=== PATIENT | male | born 1940 | race Caucasian/White ===

== ENCOUNTER 2021-09-25 20:13 | Emergency (ER) | payer OTHER, MEDICAID ==
[~2021-09-25] VITALS: Ht 167.6 cm; Wt 72.7 kg
[~2021-09-25 20:13] MED LIST: METF-445 PO
[2021-09-25] MEDS ORDERED: AMLO-519 PO (21:02)
[2021-09-25] MEDS ORDERED: ASPI81TA39 PO (21:03)
[2021-09-25] MEDS ORDERED: DSSL PO (21:15)
[2021-09-25] MEDS ORDERED: QUET25TA PO (21:15)
[2021-09-25] MEDS ORDERED: BRIM15DR8 OU (21:15)
[2021-09-25] MEDS ORDERED: [UNRECOGNIZED DRUG - CODE] TP (21:15)
[2021-09-25] MEDS ORDERED: DOXE10 PO (21:15)
[2021-09-25] MEDS ORDERED: MIRT-89 PO (21:15)
[2021-09-25] MEDS ORDERED: GOLY4L PO (21:15)
[2021-09-25] MEDS ORDERED: CYAN100022 SL (21:15)
[2021-09-25] MEDS ORDERED: MELA3TAB89 PO (21:15)
[2021-09-25] MEDS ORDERED: LEVO100 PO (21:15)
[2021-09-25] MEDS ORDERED: METF-1211 PO (21:15)
[2021-09-25] MEDS ORDERED: FERR-89 PO (21:15)
[2021-09-25] MEDS ORDERED: OMEP20 PO (21:15)
[2021-09-25] MEDS ORDERED: XALA2.5OS OU (21:15)
[2021-09-25] MEDS ORDERED: DULA0.75 SQ (21:15)
[2021-09-25] MEDS ORDERED: TAMS-13 PO (21:15)
[2021-09-25] MEDS ORDERED: SENN-178 PO (21:15)
[2021-09-26] MEDS ORDERED: ACETAMINOPHEN 325 MG TABLET PO ONE (00:15)
[2021-09-26 00:35] VITALS: BP 139/73
== END 2021-09-26 02:40 | disposition home or self-care (01) ==
LOC: EMS 20:20
DX: M54.50 Low back pain, unspecified (principal); E11.9 Type 2 diabetes mellitus without complications; R51.9 Headache, unspecified; Z79.82 Long term (current) use of aspirin; Z79.899 Other long term (current) drug therapy; W06.XXXA Fall from bed, initial encounter; Y93.89 Activity, other specified; Y92.89 Other specified places as the place of occurrence of the external cause; Y99.8 Other external cause status
CPT/HCPCS: 70450; 72100; 72125; 82962; 99284